=== PATIENT | female | born 1970 | race Caucasian/White ===

== ENCOUNTER 2022-02-14 18:40 | Emergency (ER) | payer MEDICAID ==
[~2022-02-14] VITALS: Ht 165.1 cm; Wt 73.0 kg
[2022-02-14] MEDS ORDERED: HYDROCODONE/ACETAMINOPHEN 10/325MG TABLET PO ONE (19:15)
[2022-02-14] MEDS ORDERED: IBUPROFEN 600MG TABLET PO ONE (19:15)
[2022-02-14] MEDS ORDERED: HYDROCODONE/ACETAMINOPHEN 10/325MG TABLET PO SCH (22:30)
[2022-02-14] MEDS ORDERED: CYCLOBENZAPRINE 10MG TABLET PO ONE (22:30)
[2022-02-14] MEDS ORDERED: IBUPROFEN 600MG TABLET PO SCH (22:30)
[2022-02-14] MEDS ORDERED: MORPHINE SULFATE 4 MG/ML CPJ (NOT FOR IM USE) IV ONE (23:15)
[2022-02-14] MEDS ORDERED: ONDANSETRON HCL 4MG/2ML INJ IV ONE (23:15)
[2022-02-14] MEDS ORDERED: DIPHENHYDRAMINE 50MG/ML VIAL IV ONE (23:30)
[2022-02-15] MEDS ORDERED: MORPHINE SULFATE 2 MG/ML CPJ (NOT FOR IM USE) IV ONE (01:15)
[2022-02-15] MEDS ORDERED: DIAZEPAM 5 MG/ML 2ML CPJ IV ONE (01:15)
[2022-02-15] MEDS ORDERED: HYDR-4001 MT ×3 (04:21→05:28)
[2022-02-15] MEDS ORDERED: DIAZ2TAB MT ×3 (04:21→05:28)
[2022-02-15 04:45] VITALS: BP 111/70
== END 2022-02-15 04:40 | disposition home or self-care (01) ==
LOC: ER 18:40
DX: S39.012A Strain of muscle, fascia and tendon of lower back, initial encounter (principal); F17.200 Nicotine dependence, unspecified, uncomplicated; Z88.6 Allergy status to analgesic agent; Z88.8 Allergy status to other drugs, medicaments and biological substances; Z88.5 Allergy status to narcotic agent; Z98.890 Other specified postprocedural states; Y93.01 Activity, walking, marching and hiking; Y93.89 Activity, other specified; Y92.89 Other specified places as the place of occurrence of the external cause; Y99.8 Other external cause status
CPT/HCPCS: 72131; 96374; 96375; 96376; 99285; J1200; J2270; J2405; Z7610

== ENCOUNTER 2022-02-22 22:50 | Emergency (ER) | payer MEDICAID ==
[~2022-02-22] VITALS: Ht 165.1 cm; Wt 76.8 kg
[~2022-02-22 22:50] MED LIST: DIAZ2TAB MT; HYDR-4001 MT
[2022-02-22 23:16] VITALS: BP 130/93
[2022-02-23] MEDS ORDERED: CYCLOBENZAPRINE 10MG TABLET PO ONE (02:15)
[2022-02-23] MEDS ORDERED: ACETAMINOPHEN 325MG TABLET PO ONE (02:15)
== END 2022-02-23 02:00 | disposition left against medical advice (07) ==
LOC: ER 22:50
DX: G89.29 Other chronic pain (principal); M54.50 Low back pain, unspecified; Z98.1 Arthrodesis status; Z88.8 Allergy status to other drugs, medicaments and biological substances
CPT/HCPCS: 99281